=== PATIENT | female | born 2005 | race Hispanic/Latino ===

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

== ENCOUNTER 2025-05-19 15:25 | Emergency (ER) | payer MEDICAID ==
[~2025-05-19] VITALS: Ht 154.9 cm; Wt 75.3 kg
[2025-05-19 16:13] LABS: GLUCOSE, URINE (UA) NEGATIVE (NEGATIVE); LEUKOCYTE ESTERASE ,URINE 500 Leu/uL (NEGATIVE); NITRATE,URINE NEGATIVE (NEGATIVE); OCCULT BLOOD,URINE NEGATIVE (NEGATIVE)
[2025-05-19 16:17] LABS: ADD UA MICROSCOPIC YES; APPEARANCE,URINE HAZY (CLEAR)
[2025-05-19 16:24] LABS: SQUAMOUS EPITHELIAL CELL,UR MOD /HPF (0-2)
[2025-05-19 16:26] LABS: IMMATURE GRANULOCYTE ABSOLUTE 0.01 K/uL (0-1); NUCLEATED RED BLOOD CELLS 0.0 % (0.0-0.19); PLATELET COUNT (AUTO) 276 K/uL (130-400); RED BLOOD CELL COUNT(AUTO) 4.16 MIL/uL (4.00-5.50); RED CELL DISTRIBUTION WIDTH 13.0 % (11.0-15.5); WHITE BLOOD COUNT (AUTO) 6.4 K/uL (4.8-10.8)
[2025-05-19 16:44] LABS: CREATININE 0.5 mg/dL (0.5-1.0); GLOMERULAR FILTR. RATE CALC 136.0 mL/min (>90); GLUCOSE,RANDOM 82.0 mg/dL (70-105); SODIUM SERUM 140.0 mmol/L (136-145); UREA NITROGEN, BLOOD 6.0 mg/dL (7-18)
--- NOTE | 2025-05-19 18:19 | HMCIMG ---
EXAM: Obstetric ultrasound limited transabdominal INDICATION: Positive test TECHNIQUE: Transabdominal cameron scale and color doppler flow images of the pelvis REFERENCE EXAMINATION: None FINDINGS: Single intrauterine gestation is identified. Gestational sac measures 0.9 cm corresponding to estimated gestational age of 5 weeks and 6 days. No pole or yolk sac seen. Cervix is closed. Amniotic fluid is adequate. Placenta is unremarkable. Uterus measures 10.7 x 6.2 x 5.0 cm. Ovaries measure 2.1 x 1.5 x 2.5 cm on the right and measuring 2.9 x 2.1 x 2.1 cm on the left. Adequate color flow was documented bilaterally. No adnexal masses. No fluid in the cul-de-sac. IMPRESSION: Single intrauterine seen measuring at 5 weeks and 6 days. /[place]
[2025-05-19] MEDS ORDERED: CEPH500B PO (19:05)
--- NOTE | 2025-05-19 19:06 | ERN ---
General Chief Complaint: Vaginal Problems/Bleeding Stated Complaint: VAGINAL BLEEDING Time Seen by MD: 15:41 Time Seen by Midlevel: 15:41 Source: patient History of Present Illness Initial Comments Patient is a 20-year-old female presenting to the emergency department for evaluation of lower abdominal cramping with light vaginal spotting that began today at a proximally 6:00 a.m.. Patient reports she does not know if she is . Her last menstrual period was April 01, 2025. She does report being irregular in her menstrual cycle. Allergies: Coded Allergies: No Known Drug Allergies (Unverified Allergy, Unknown, 09/28/21) Home Meds Active Scripts Pnv Cmb#21/Iron/Folic Acid ( Complete Caplet) 1 Each Tablet, 1 EACH PO DAILY for 30 Days, #30 TAB 2 Refills Prov:SUSAN STEEL MD 09/28/21 Reported Medications Acetaminophen with Codeine (Acetaminophen-Cod #3 Tablet) 1 Each Tablet, 1 EACH PO Q4H PRN for PAIN LEVEL 6 TO 10, #30 TAB 04/22/22 Ibuprofen (Ibuprofen 800 mg Tab) 800 Mg Tab, 800 MG PO Q8H PRN for PAIN LEVEL 4 TO 6, #60 TAB 04/22/22 Docusate Sodium (Colace) 100 Mg Capsule, 100 MG PO BID, #60 CAP 04/22/22 Past Medical History Past Medical History: No Pertinent History Past Surgical History: None Social History Social History: Negative, Lives with family Female( History) History: Not Applicable : 1 Para: 0 ROS Dictation CONSTITUTIONAL: Negative except for HPI HEAD/FACE: Negative except for HPI EENT: Negative except for HPI RESPIRATORY: Negative except for HPI GASTROINTESTINAL/ABDOMINAL: Negative except for HPI GENITOURINARY: Negative except for HPI MUSCULOSKELETAL: Negative except for HPI INTEGUMENTARY: Negative except for HPI NEUROLOGICAL/PSYCH: Negative except for HPI HEMATOLOGIC/LYMPHATIC: Negative except for HPI All Systems Negative, Except as noted above. 13 point review of systems assessed and all negative except for above. Physical Exam Physical Exam Dictation Vital Signs reviewed General Appearance: Alert, oriented x 3, no acute distress, well developed, nourished. Head and Face: non-traumatic. Eyes: PERRL, pink conjunctivas, eyelid no trauma, anterior chamber with arcus senilis. Ears: Pinnas intact and no signs of trauma or erythema ear canals clear and no discharge TM no erythema Nose: No discharge, no bleeding. Oropharynx: Mouth normal, tongue pink, pharynx clear,no erythema, tonsils no exudates, no abscesses noted, mucous membrane moist Neck: Supple, non-tender, no thyromegaly, no masses, no JVD, no bruits Breast:Deferred Chest:No tenderness, no crepitus, no paradoxical movement, no retractions Lungs:Clear, well-ventilated, symmetric, no rales, no wheezing, no rhonchi, no stridor, good breath sounds bilaterally Heart: Regular rate, regular rhythm, no murmur, no gallops Vascular: no peripheral edema, Abdomen: Soft, positive bowel sounds, nondistended, no guarding, nontender, no rebound, no masses no hepatomegaly, no splenomegaly, no Grijalva's sign, no hernias. Rectal: Deferred Genital: Deferred Neurological: Normal speech, motor function intact, sensory function intact Musculoskeletal: Neck nontender, full range of motion, back nontender, full range of motion, Extremities: nontender, full range of motion Skin: Color pink, dry, no turgor, no rash, no lacerations, no abrasions, no contusions. Lymphatic: Deferred Results Laboratory and Microbiology Lab and Micro Result Laboratory Tests Test 05/19/25 15:59 05/19/25 16:17 Urine Color LIGHT-YELLOW (YELLOW) Urine Appearance HAZY (CLEAR) Urine pH 7.0 (5.0-8.0) Urine Specific [place] 1.007 (1.001-1.031) Urine Protein NEGATIVE mg/dL (NEGATIVE) Urine Glucose (UA) NEGATIVE mg/dL (NEGATIVE) Urine Ketones NEGATIVE mg/dL (NEGATIVE) Urine Occult Blood NEGATIVE (NEGATIVE) Urine Nitrate NEGATIVE (NEGATIVE) Urine Bilirubin NEGATIVE mg/dL (NEGATIVE) Urine Urobilinogen 0.2 mg/dL (0.2-1.0) Urine Leukocyte Esterase 500 [place]/uL (NEGATIVE) H Urine RBC 2-5 /HPF (0-1) H Urine WBC 11-25 /HPF (0-1) H Urine Squamous Epithelial Cells MOD /HPF (0-2) Urine Bacteria FEW /HPF (None Seen) White Blood Count 6.4 K/uL (4.8-10.8) Red Blood Count 4.16 MIL/uL (4.00-5.50) Hemoglobin 12.4 g/dL (12.0-16.0) Hematocrit 36.1 % (36-48) Mean Corpuscular Volume 86.8 fL (79-99) Mean Corpuscular Hemoglobin 29.8 pg (27.0-33.0) Mean Corpuscular Hemoglobin Concent 34.3 g/dL (32.0-36.0) Red Cell Distribution Width 13.0 % (11.0-15.5) Platelet Count 276 K/uL (130-400) Mean Platelet Volume 9.8 fL (7.5-10.5) Immature Granulocyte % (Auto) 0.2 % (0-1) Neutrophils (%) (Auto) 64.8 % (40.0-77.0) Lymphocytes (%) (Auto) 26.9 % (21.0-51.0) Monocytes (%) (Auto) 7.0 % (3.0-13.0) Eosinophils (%) (Auto) 0.8 % (0.0-8.0) Basophils (%) (Auto) 0.3 % (0.0-5.0) Neutrophils # (Auto) 4.2 K/uL (1.8-7.7) Lymphocytes # (Auto) 1.7 K/uL (1.0-4.8) Monocytes # (Auto) 0.5 K/uL (0.1-1.0) Eosinophils # (Auto) 0.05 K/uL (0.00-0.70) Basophils # (Auto) 0.02 K/uL (0.00-0.20) Absolute Immature Granulocyte (auto 0.01 K/uL (0-1) Nucleated Red Blood Cells 0.0 % (0.0-0.19) Sodium Level 140 mmol/L (136-145) Potassium Level 3.8 mmol/L (3.5-5.1) Chloride Level 102 mmol/L (101-111) Carbon Dioxide Level 27 mmol/L (21-32) Blood Urea Nitrogen 6 mg/dL (7-18) L Creatinine 0.5 mg/dL (0.5-1.0) Glomerular Filtration Rate Calc 136 mL/min (>90) Random Glucose 82 mg/dL (70-105) Total Calcium 9.0 mg/dL (8.5-10.1) Human Chorionic Gonadotropin, Quant 8885 mIU/mL (0-5) H Serum Test, Qualitative POSITIVE (NEGATIVE) H Labs Reviewed?: Yes MDM MDM: Differential diagnosis: , urinary tract infection, constipation There are no social concerns with this patient. Prescription drug management Prescriptions will include: None Medical management and examination interpretation discussions were had by me with other qualified healthcare professionals as indicated for the patient's care. ED Course Orders Procedure Category Date Status Time Basic Metabolic Panel LAB 05/19/25 Complete 15: Cbc With Differential LAB 05/19/25 Complete 15:31 Testing, LAB 05/19/25 Complete Serum Hcg 15:31 Urinalysis Profile LAB 05/19/25 Complete 15: Culture Urine DILAN 05/19/25 In Process 16:17 Hcg,Quantitative LAB 05/19/25 Complete 16:50 Us Ob <14 Weeks US 05/19/25 Resulted 16:49 Vital Signs Date Time Temp Pulse Resp B/P (MAP) Pulse Ox O2 Delivery O2 Flow Rate FiO2 05/19/25 15:26 99.0 72 17 118/77 100 Room Air DX & DISP Disposition: Discharge Departure Impression: Primary Impression: First trimester Additional Impression: Urinary tract infection Condition: Stable Scripts Cephalexin Monohydrate (Keflex) 500 Mg Cap 500 MG PO QID for 7 Days, #28 CAP Prov: LIBIA BARRON PAC 05/19/25 Additional Instructions: Your blood work today is stable. You had a positive test. Your hCG quant is 8885. Your pelvic ultrasound reveals a single intrauterine measuring five weeks and six days. Please follow up with your OBGYN. Referrals: MANDI DIXON MD (PCP) Time of Disposition: 19:02 I have reviewed the case, and I agree with, Diagnosis and Plan I performed the substantive portion of the visit. I have reviewed and personally made and approve the management plan that is documented in the note by myself or the SYLVIE. I acknowledge for responsibility for the patient's management plan. LIBIA BARRON PAC May 19, 2025 19:06
[2025-05-19 19:37] VITALS: BP 118/75; PULSE 70; RESP 16; TEMP 98.9; O2SAT 98
== END 2025-05-19 19:44 | disposition home or self-care (01) ==
LOC: EDH 15:25
DX: O23.41 Unspecified infection of urinary tract in pregnancy, first trimester (principal); N39.0 Urinary tract infection, site not specified; R10.20 Pelvic and perineal pain unspecified side; Z3A.01 Less than 8 weeks gestation of pregnancy; Z79.899 Other long term (current) drug therapy
CPT/HCPCS: 36415; 76801; 80048; 81001; 84702; 84703; 85025; 87086; 99284

== ENCOUNTER 2025-06-12 08:58 | Emergency (ER) | payer MEDICAID ==
[~2025-06-12] VITALS: Ht 154.9 cm; Wt 75.3 kg
[~2025-06-12 08:58] MED LIST changes: +CEPH500B PO
[2025-06-12 09:19] LABS: IMMATURE GRANULOCYTE ABSOLUTE 0.02 K/uL (0-1); NUCLEATED RED BLOOD CELLS 0.0 % (0.0-0.19); PLATELET COUNT (AUTO) 258 K/uL (130-400); RED BLOOD CELL COUNT(AUTO) 4.04 MIL/uL (4.00-5.50); RED CELL DISTRIBUTION WIDTH 13.0 % (11.0-15.5); WHITE BLOOD COUNT (AUTO) 7.3 K/uL (4.8-10.8)
[2025-06-12] MEDS ORDERED: 0.9%NACL 1000ML 1,000 ML IV ONE (09:30)
[2025-06-12 09:37] LABS: CREATININE 0.6 mg/dL (0.5-1.0); GLOMERULAR FILTR. RATE CALC 130.0 mL/min (>90); GLUCOSE,RANDOM 89.0 mg/dL (70-105); SODIUM SERUM 140.0 mmol/L (136-145); UREA NITROGEN, BLOOD 5.0 mg/dL (7-18)
--- NOTE | 2025-06-12 10:26 | ERN ---
General Chief Complaint: Vaginal Bleeding Stated Complaint: BLEEDING IN Time Seen by MD: 09:00 Source: patient History of Present Illness Initial Comments Patient is a 20-year-old female coming in complaining of vaginal bleed patient states he has been weeks was evaluated another ER. She states that she has not been able to follow up with the OBGYN Dr. Dixon. Allergies: Coded Allergies: No Known Drug Allergies (Unverified Allergy, Unknown, 09/28/21) Home Meds Active Scripts Cephalexin Monohydrate (Keflex) 500 Mg Cap, 500 MG PO QID for 7 Days, #28 CAP Prov:LIBIA BARRON PAC 05/19/25 Pnv Cmb#21/Iron/Folic Acid ( Complete Caplet) 1 Each Tablet, 1 EACH PO DAILY for 30 Days, #30 TAB 2 Refills Prov:SUSAN STEEL MD 09/28/21 Reported Medications Acetaminophen with Codeine (Acetaminophen-Cod #3 Tablet) 1 Each Tablet, 1 EACH PO Q4H PRN for PAIN LEVEL 6 TO 10, #30 TAB 04/22/22 Ibuprofen (Ibuprofen 800 mg Tab) 800 Mg Tab, 800 MG PO Q8H PRN for PAIN LEVEL 4 TO 6, #60 TAB 04/22/22 Docusate Sodium (Colace) 100 Mg Capsule, 100 MG PO BID, #60 CAP 04/22/22 Past Medical History Past Medical History: No Pertinent History Past Surgical History: Other Social History Social History: Negative, Lives with family Female( History) History: Not Applicable : 1 Para: 0 ROS Dictation CONSTITUTIONAL: No chills, no fever, no weakness, no diaphoresis, no malaise. HEAD/FACE: No signs of trauma. EENT: No eye pain, no blurred vision, no tearing, no double vision, no ear pain, no ear discharge, no nose pain, no nasal congestion, no throat pain, no throat swelling, no mouth pain. RESPIRATORY: No cough, no orthopnea, no SOB, no stridor, no wheezing. CARDIOVASCULAR: No chest pain, no edema, no palpitations, no syncope. GASTROINTESTINAL/ABDOMINAL: No abdominal pain, no constipation, no diarrhea, no nausea, no vomiting. GENITOURINARY: No abnormal discharge, no dysuria, no frequent urination, no hematuria. No complaints of pain in the genitals. MUSCULOSKELETAL: No back pain, no gout, no joint pain, no joint swelling, no muscle pain, no muscle stiffness, no neck pain. INTEGUMENTARY: No change in color, no change in hair/nails, no dryness, no lesion, no lumps, no rash. NEUROLOGICAL/PSYCH: No anxiety, not depressed, no emotional problem, no headache, no numbness, no pre-existing deficit, no history of seizures, no tremors, no weakness. HEMATOLOGIC/LYMPHATIC: Not anemic, no history of blood clots, no apparent bleeding, no bruising, glands not swollen. All Systems Negative, Except as Noted. Physical Exam Physical Exam Dictation VITAL SIGNS: Reviewed. GENERAL APPEARANCE: Alert, oriented x3, no acute distress, obese. HEAD AND FACE: Non-traumatic. EYES: PERRL, pink conjunctivas, eyelid no trauma, anterior chamber clear. EARS: Pinnas intact and no signs of trauma or erythema. Ear canals clear and no discharge. TMs no erythema. NOSE: No discharge, no bleeding. OROPHARYNX: Mouth normal, teeth no caries, tongue pink. Pharynx clear, no erythema. Tonsils no exudates, no abscesses noted. Mucous membrane moist. NECK: Supple, non-tender, no thyromegaly, no masses, no JVD, no bruits. BREAST: Deferred. CHEST: No tenderness, no crepitus, no paradoxical movement, no retractions. LUNGS: Clear, well-ventilated, symmetric, no rales, no wheezing, no rhonchi, no stridor, good breath sounds bilaterally. HEART: Regular rate, regular rhythm, no murmur, no gallops. VASCULAR: No peripheral edema. ABDOMEN: Soft, positive bowel sounds, nondistended, no guarding, nontender, no rebound, no masses no hepatomegaly, no splenomegaly, no Grijalva's sign, no hernias. RECTAL: Deferred. GENITAL: Deferred. NEUROLOGICAL: Normal speech, gross motor function intact, gross sensory function intact. MUSCULOSKELETAL: Neck nontender, full range of motion, back nontender, full range of motion. EXTREMITIES: Nontender, full range of motion. SKIN: Color pink, dry, no turgor, no rash, no lacerations, no abrasions, no contusions. LYMPHATICS: Deferred. Results Laboratory and Microbiology Lab and Micro Result Laboratory Tests Test 06/12/25 09:12 White Blood Count 7.3 K/uL (4.8-10.8) Red Blood Count 4.04 MIL/uL (4.00-5.50) Hemoglobin 12.2 g/dL (12.0-16.0) Hematocrit 35.4 % (36-48) L Mean Corpuscular Volume 87.6 fL (79-99) Mean Corpuscular Hemoglobin 30.2 pg (27.0-33.0) Mean Corpuscular Hemoglobin Concent 34.5 g/dL (32.0-36.0) Red Cell Distribution Width 13.0 % (11.0-15.5) Platelet Count 258 K/uL (130-400) Mean Platelet Volume 9.7 fL (7.5-10.5) Immature Granulocyte % (Auto) 0.3 % (0-1) Neutrophils (%) (Auto) 63.4 % (40.0-77.0) Lymphocytes (%) (Auto) 27.5 % (21.0-51.0) Monocytes (%) (Auto) 6.7 % (3.0-13.0) Eosinophils (%) (Auto) 1.8 % (0.0-8.0) Basophils (%) (Auto) 0.3 % (0.0-5.0) Neutrophils # (Auto) 4.6 K/uL (1.8-7.7) Lymphocytes # (Auto) 2.0 K/uL (1.0-4.8) Monocytes # (Auto) 0.5 K/uL (0.1-1.0) Eosinophils # (Auto) 0.13 K/uL (0.00-0.70) Basophils # (Auto) 0.02 K/uL (0.00-0.20) Absolute Immature Granulocyte (auto 0.02 K/uL (0-1) Nucleated Red Blood Cells 0.0 % (0.0-0.19) Sodium Level 140 mmol/L (136-145) Potassium Level 4.1 mmol/L (3.5-5.1) Chloride Level 103 mmol/L (101-111) Carbon Dioxide Level 28 mmol/L (21-32) Blood Urea Nitrogen 5 mg/dL (7-18) L Creatinine 0.6 mg/dL (0.5-1.0) Glomerular Filtration Rate Calc 130 mL/min (>90) Random Glucose 89 mg/dL (70-105) Total Calcium 8.8 mg/dL (8.5-10.1) Human Chorionic Gonadotropin, Quant 4423 mIU/mL (0-5) H Labs Reviewed?: Yes EKG/XRAY/US/CT/MRI Ultrasound Comment [facility] [address] [place] [address] IMAGING REPORT Signed PATIENT: ISRA PCIKETT MR#: [id number] : 2005 SEX: F AGE: 20 LOCATION: [facility] ORDER 3 STATUS: REG ER REPORT#: [id number] SERVICE 1 REASON: vag bleed ORDERING PHYSICIAN: MAKENZIE VILLALOBOS MD PROCEDURE: OB <14 - US OB <14 WEEKS EXAM: US Obstetrical, Complete <14 weeks CLINICAL HISTORY: Vaginal bleeding TECHNIQUE: Transabdominal imaging of the maternal pelvis and a < 14-week gestation with image documentation. COMPARISON: 05/19/25. FINDINGS: GESTATION: An irregular gestational sac???like structure is visualized. The mean sac diameter measures approximately 1.35 cm, corresponding to an estimated gestational age of 6 weeks 2 days by AUA. No yolk sac is visualized. No pole is visualized at this time. UTERUS: Uterus measures approximately 8.9 ??? 5.8 ??? 6.8 cm. Myometrium appears unremarkable. No definite intrauterine mass. CERVIX: Closed. Unremarkable. OVARIES: Right ovary: obscured. Left ovary: obscured; no adnexal mass seen. FREE FLUID: No free fluid. IMPRESSION: Irregular gestational sac???like structure corresponding to 6 weeks 2 days by mean sac diameter. No yolk sac or pole identified at this stage. Findings are indeterminate and may represent an early intrauterine versus an evolving failed . Correlation with serial beta-hCG levels is advised. Short-interval repeat ultrasound in 7 to 10 days is recommended to assess interval development and viability. /[place] DICTATED BY: KAYLA MONTOYA Jr., MD DATE: 06/12/251123 ELECTRONICALLY SIGNED BY: KAYLA MONTOYA Jr., MD DATE: 06/12/251123 [facility] MDM: Differential diagnosis: Threatened miscarriage, miscarriage, , Rationale: Tests considered and ordered secondary to shared decision making include: Previous outside records reviewed: Old ER visits. Risk of complication and/or morbidity or mortality of patient management: None Medications-Per medication reconciliation Need for hospitalization: Patient does not meet criteria for hospitalization. Need for emergency major/minor surgery: No Patient is a 20-year-old female coming in to be evaluated for vaginal bleed. Patient states that her OBGYN is Dr. Dixon but has not been able to follow up with her. Patient has been seen at other hospitals was told she was six weeks by date. Laboratory workup within normal limits ultrasound did confirm with sac-like structure representing an early or a failed . Patient will be discharged in stable condition I did advised her appropriate follow up with OBGYN for ongoing evaluation and continued management of her . ED Course Orders Procedure Category Date Status Time Cbc With Differential LAB 06/12/25 Complete 09:02 Hcg,Quantitative LAB 06/12/25 Complete 09:02 ,Urine Test LAB 06/12/25 Logged 09:02 Urinalysis Profile LAB 06/12/25 Logged 09:02 0.9%Nacl 1000ml (Ns PHA 06/12/25 Complete 1000ml) 09:30 Basic Metabolic Panel LAB 06/12/25 Complete 09:02 Us Ob <14 Weeks US 06/12/25 Resulted 09:02 Current Medications Medications (Trade) Dose Ordered Sig/[place] Route PRN Reason Start Time Stop Time Status Last Admin Dose Admin Sodium Chloride 1,000 ml @ 0 mls/hr ONCE ONCE IV 06/12/25 09:30 06/12/25 09:31 DC Vital Signs Date Time Temp Pulse Resp B/P (MAP) Pulse Ox O2 Delivery O2 Flow Rate FiO2 06/12/25 09:00 98.4 82 18 113/66 99 Room Air 0 DX & DISP Disposition: Discharge Departure Impression: Primary Impression: Miscarriage, threatened, early Condition: Stable Additional Instructions: FOLLOW-UP WITH PRIMARY CARE PROVIDER IN 1 TO 2 DAYS. TAKE MEDICATIONS DI RECTED HERE IN THE EMERGENCY ROOM. OKAY TO CONTINUE HOME MEDICATIONS UNLESS OTHERWISE DISCUSSED DURING YOUR VISIT IN THE EMERGENCY ROOM TODAY. RETURN TO YOUR NEAREST EMERGENCY ROOM IF SYMPTOMS WORSEN OR IF THERE IS NO IMPROVEMENT. CALL 911 IF YOU NEED IMMEDIATE ASSISTANCE. TAKE TYLENOL [id number] NEEDED AND IF NO CONTRAINDICATIONS ARE PRESENT. INCREASE ORAL HYDRATION. A WOUND CULTURE OR URINE CULTURE WAS ORDERED HERE IN THE EMERGENCY ROOM DEPARTMENT PLEASE FOLLOW-UP WITH PRIMARY CARE PROVIDER AND ADVISE THEM TO GET REPORTS FROM OUR FACILITY. IF YOU HAD ANY MARIANA WRAP/SPLINTS THAT WERE APPLIED HERE, PLEASE DO NOT REMOVE THEM UNTIL YOU SEE YOUR PRIMARY CARE OR SPECIALTY. Referrals: Referrals: MANDI DIXON MD (PCP) Time of Disposition: 11:13 MAKENZIE VILLALOBOS MD Jun 12, 2025 10:26
[2025-06-12 11:19] VITALS: BP 113/71; PULSE 61; RESP 18; TEMP 97.9; O2SAT 99
== END 2025-06-12 11:35 | disposition home or self-care (01) ==
LOC: EDH 08:58
DX: O20.0 Threatened abortion (principal); Z3A.01 Less than 8 weeks gestation of pregnancy
CPT/HCPCS: 36415; 76801; 80048; 84702; 85025; 99284